=== PATIENT | female | born 1965 | race Caucasian/White ===

== ENCOUNTER → 2019-11-22 11:12 | Outpatient (BNVA) | payer OTHER, SELFPAY | PROVIDERS: Family Provider Family Medicine; Visit Provider Registered Nurse | DX: Z00.00 Encounter for general adult medical examination without abnormal findings (principal); E78.5 Hyperlipidemia, unspecified; R51 Headache | CPT/HCPCS: 80053; 80061; 85025 ==

== ENCOUNTER 2019-12-12 10:11 | Outpatient (CLI) | payer OTHER, SELFPAY ==
--- NOTE | 2019-12-12 10:24 | MM_ITS ---
WS: [id number] Bilateral diagnostic digital mammogram, 12/12/2019 Clinical Data: 6 MO F/U CALCIFICATIONS Comparison: 04/23/2019, 10/13/2018. Findings: Calcifications noted on the implant displacement views of the right breast remain the same. They are benign in appearance. The left breast remains the same. The augmentation mammoplasty implants remain intact. The breast parenchymal pattern shows heterogeneous density. No spiculated masses nor secondar y signs of carcinoma are seen. MM/[place] [id number] Impression: 1. Benign calcification posterior to the nipple in the right breast on implant displacement views remain unchanged and appear to be benign. 2. Intact bilateral augmentation mammoplasty implant. 3. Negative left breast BIRADS: 2-Benign FOLLOW UP: 1 Year Follow-up The CAD warehouse checker was used.
== END 2019-12-12 10:12 | disposition home or self-care (01) ==
LOC: RADSHAW 10:13
PROVIDERS: PCP Registered Nurse; Visit Provider Registered Nurse
DX: R92.1 Mammographic calcification found on diagnostic imaging of breast (principal)
CPT/HCPCS: 77066

== ENCOUNTER 2019-12-26 09:26 | Day surgery (SDC) | payer OTHER, SELFPAY ==
[2019-12-24 10:59] VITALS: BMI 24.3
[2019-12-26] MEDS: sodium chloride 0.9% 1,000 ML 30 ML IV (09:40)
[2019-12-26 09:48] VITALS: BP 124/64; PULSE 63; RESP 18; TEMP 36.1; O2SAT 98
--- NOTE | 2019-12-26 11:36 | W.PM.OPSFHP ---
Same Day Surgery H&P Indication for Procedure/HPI DATE OF PROCEDURE: December 26, 2019 CHIEF COMPLAINT/INDICATIONFOR SURGICAL PROCEDURE: Screening colonoscopy PREOP DIAGNOSIS: Screening colonoscopy PLANNED PROCEDRUE: Operation Date: 12/26/19 11:00 Proposed Procedures p Colonoscopy 90951 Z12.11(Not Applicable) - Abhi Urbano MD This is a pleasant 54 years old female patient referred to my practice for screening colonoscopy. Patient reports that she had a previous colonoscopy before that was reported as normal patient denies any bleeding per rectum or history of colon cancer. ROS All systems have been reviewed negative except as per the above or per problem list Medications/Allergies* Allergies/Adverse Reactions Allergy/AdvReac Type Severity Reaction Status Date / Time No Known Allergies Allergy Verified 12/26/19 11:37 Pertinent History/Comorbid Conditions* Medical History (Updated 12/18/19 @ 18:18 by Luz Elena Lewis MD) No pertinent past medical history Denies diabetes, asthma, hypertension, seizures, DVT/PE. PCP: KO Alfred Surgical History (Updated 12/21/19 @ 10:19 by LuzE lena Lewis MD) History of back surgery 01/22/2016--back surgery [place]. Sanchez [place] [facility] [place] Hx of breast implants, bilateral 2005---saline implants Hx of cholecystectomy 2005--laparoscopic procedure S/P dilation and curettage 1987-done for a miscarriage Status post conization of cervix 1989- for abnormal Pap smear Status post hysterectomy 2008--laparoscopic assisted vaginal hysterectomy, trans-obturator suburethral sling, anterior repair, cystoscopy performed by Dr. Witt at [facility] [place]. Surgery was done for heavy bleeding and leaking of urine these operative reports have been requested and received and scanned into chart Family History (Updated 12/12/19 @ 13:19 by Falguni Plascencia RN) Diabetes Grandfather paternal Grandmother maternal Family/Other paternal uncle Heart disease Father Hypertension Father Denies family history of Colon cancer Ovarian cancer Hyperlipidemia Breast cancer Uterine cancer Thyroid condition Stroke Social History Smoking and tobacco status: current every day smoker cigarettes Pertinent Exam Findings alert, oriented x 3, clear to auscultation bilaterally, regular rate & rhythm and procedure specific exam findings (Abdominal examination nontender nondistended soft no guarding or rigidity) Recommendations Surgery/Procedure today (Screening colonoscopy and informed consent per chart) Coding Level of Care Code Acute Corporate Associate Attorney for Bailey Salazar
[2019-12-26 11:51] VITALS: BP 109/63; PULSE 54; RESP 18; TEMP 37; O2SAT 99
--- NOTE | 2019-12-26 11:54 | ANE.PACU2 ---
Inpatient post-anesthesia follow up: Airway intact: Yes Vital signs: Temperature 97.0 F Pulse Rate 63 Respiratory Rate 18 Blood Pressure 124/64 Pulse Oximetry 98 Oxygen Delivery Me thod Room Air Oxygen Flow Rate Fraction of Inspir ed Oxygen Hydration adequate: Yes Nausea and vomiting: No Mental status: Baseline
--- NOTE | 2019-12-26 11:57 | P.ANESASSM_ITS ---
Pre-Anesthetic Assessment Pre-Anesthetic Assessment: Height/Weight: Height 1.6 m Weight 62.142 kg Temp Pulse Resp BP Pulse Ox 98.6 F 54 L 18 109/63 99 12/26/19 11:51 12/26/19 11:51 12/26/19 11:51 12/26/19 11:51 12/26/19 11:51 Preop Diagnosis: Screening colonoscopy Proposed Procedure: Operation Date: 12/26/19 11:00 Proposed Procedures p Colonoscopy 59779 Z12.11(Not Applicable) - Abhi Urbano MD Was Beta López taken within 24 hours: N/A Last intake: Intake Last Liquid Date 12/25/19 Last Liquid Time 21:00 Last Solid Date 12/24/19 Last Solid Time 15:30 Social: Social History: Alcohol and Tobacco Exam: Pre-Anes Outpt Exam: alert, oriented x 3, clear to auscultation bilaterally and regular rate & rhythm Airway: Submandibular: WNL Cervical ROM: WNL MP: 1 Pulmonary: Pulmonary: None reported CV/HEM: CV/HEM: None reported : : None reported Hepatic: Hepatic: None reported GI: GI: None reported Metabolic: Metabolic: None reported Musc/skel: Musc/skel: None reported Neuropsych: Neuropsych: None reported Anesthetic Plan: ASA status: 2 Anesthesia: MAC PFSH Anesthesia PFSH: Medical History No pertinent past medical history Denies diabetes, asthma, hypertension, seizures, DVT/PE. PCP: KO Alfred Surgical History (Updated 12/21/19 @ 10:19 by Luz Elena Lewis MD) History of back surgery 01/22/2016--[place]. Sanchez [place] [facility] [place] Hx of breast implants, bilateral 2005---saline implants Hx of cholecystectomy 2005--laparoscopic procedure S/P dilation and curettage 1987-done for a miscarriage Status post conization of cervix 1989- for abnormal Pap smear Status post hysterectomy 2008--laparoscopic assisted vaginal hysterectomy, trans-obturator suburethral sling, anterior repair, cystoscopy performed by Dr. Witt [place] [facility] [place] Surgery was done for heavy bleeding and leaking of urine these operative reports have been requested and received and scanned into chart Family History Grandfather Diabetes paternal Grandmother Diabetes maternal Family/Other Diabetes paternal uncle Father Heart disease Hypertension Denies family history of Colon cancer Ovarian cancer Hyperlipidemia Breast cancer Uterine cancer Thyroid condition Stroke Social History Smoking and tobacco status: current every day smoker cigarettes Data Anesthesia Cardiac Studies: No Data to Display
[2019-12-26 12:04] VITALS: BP 110/68; PULSE 56; RESP 18; O2SAT 99
== END 2019-12-26 12:11 | disposition home or self-care (01) ==
PROVIDERS: PCP Registered Nurse; Visit Provider Surgery
PROC: 0DJD8ZZ Inspection of Lower Intestinal Tract, Via Natural or Artificial Opening Endoscopic (ICD-10-PCS; CPT 45378; principal; 2019-12-26 11:00)
DX: Z12.11 Encounter for screening for malignant neoplasm of colon (principal); F17.210 Nicotine dependence, cigarettes, uncomplicated
CPT/HCPCS: 12345; 45378; J2704; J7030

== ENCOUNTER → 2020-02-08 13:23 | Outpatient (BNVA) | payer OTHER, SELFPAY | PROVIDERS: PCP Registered Nurse; Visit Provider Obstetrics & Gynecology | DX: R39.14 Feeling of incomplete bladder emptying (principal) | CPT/HCPCS: 80053; 81000 ==

== ENCOUNTER 2020-08-30 15:46 | Emergency (ER) | payer OTHER, SELFPAY ==
[2020-08-30] VITALS (7 sets, daily range): BP systolic 99–124; BP diastolic 53–72; PULSE 57–78; RESP 18; TEMP 36.6–36.9; O2SAT 96–99; BMI 24.7
--- NOTE | 2020-08-30 16:11 | W.ED.NAVMDI ---
HPI - Nausea/Vomiting/Diarrhea General: Chief complaint: Nausea/Vomiting/Diarrhea Stated complaint: N/V , HEADACHE POST SURGERY Time Seen by Provider: 08/30/20 15:59 History of Present Illness: HPI Narrative: 55-year-old female presents to the emergency room with complaints of nausea and vomiting. But a week and a half ago she was seen in [place] had removal of a bladder mesh postoperatively she performs self-catheterization she has been able to stop doing that she did have several bowel movements including one right before she arrived here. She denies any chest pain or difficulty breathing. She denies any hematochezia melena hematemesis or coffee-ground emesis MD elicited complaint: nausea and vomiting Pertinent past history: abdominal surgery Onset (ago): hour(s) Description of vomiting: food contents and watery Associated nausea: Yes Associated abdominal pain: No Quality: cramping Exacerbating factors: eating Relieving factors: none Associated symtoms: Reports anorexia, malaise, nausea and weakness; Denies altered mental status, anxiety, bloating, change in vision, chest pain, cough, diaphoresis, decreased urine output, dizziness, dysuria, epistaxis, fatigue, fecal incontinence, fevers/chills, headache(s), myalgias, numbness, palpitations, rash, short of breath, syncope, tenesmus, tinnitus or other Review of Systems Const: Reports: malaise; Denies: fatigue or diaphoresis Eyes: Denies: change in vision ENMT: Denies: tinnitus or epistaxis Card: Denies: chest pain, palpitations or syncope Resp: Denies: dyspnea, productive cough or non-productive cough GI: Reports: nausea; Denies: bloating or fecal incontinence : Denies: dysuria Skin/Breast: Denies: rash or pruritus Neuro: Denies: headache(s) or dizziness Psych: Denies: anxiety PFSH ED PFSH: Medical History No pertinent past medical history Denies diabetes, asthma, hypertension, seizures, DVT/PE. PCP: KO Alfred Surgical History History of back surgery 01/22/2016[place] [facility] [place]x of breast implants, bilateral 2006---saline implants Hx of cholecystectomy 2005--laparoscopic procedure S/P dilation and curettage 1987-done for a miscarriage Status post conization of cervix 1989- for abnormal Pap smear Status post hysterectomy 2008--laparoscopic assisted vaginal hysterectomy, trans-obturator suburethral sling, anterior repair, [place] [facility] [place] Surgery was done for heavy bleeding and leaking of urine these operative reports have been requested and received and scanned into chart Family History Grandfather Diabetes paternal Grandmother Diabetes maternal Family/Other Diabetes paternal uncle Father Heart disease Hypertension Denies family history of Colon cancer Ovarian cancer Hyperlipidemia Breast cancer Uterine cancer Thyroid condition Stroke Social History Smoking and tobacco status: current every day smoker cigarettes Physical Exam Const: COMMON NORMALS: no acute distress EXAM LIMITATIONS: no altered mental status GENERAL APPEARANCE: cooperative and comfortable ORIENTATION/CONSCIOUSNESS: Yes awake, Yes oriented to person, Yes oriented to place and Yes oriented to time HENMT: COMMON NORMALS: normocephalic, atraumatic and hearing grossly normal bilaterally HEAD & SCALP: normocephalic and atraumatic Neck/C-Spine: COMMON NORMALS: no JVD Resp: COMMON NORMALS: normal respiratory effort, No retractions, No use of accessory muscles and clear to auscultation bilaterally AUSCULTATION: clear to auscultation bilaterally Cardio: COMMON NORMALS: no JVD, regular rate, regular rhythm and No murmurs present (Cardio) RATE: regular rate RHYTHM: regular rhythm GI: COMMON NORMALS: Soft to palpation and No hepatosplenomegaly present AUSCULTATION: Yes normoactive bowel sounds PALPATION: Yes Soft to palpation, No Tenderness to palpation present (GI), No Guarding due to palpation present (GI) and Yes No hepatosplenomegaly present Extremity: COMMON NORMALS: normal to inspection, capillary refill normal, no clubbing, cyanosis or edema, no calf tenderness and no pedal edema Neuro: SENSORIUM/ORIENTATION: Yes oriented to person, Yes oriented to place and Yes oriented to time Skin: COMMON NORMALS: no rashes or lesions noted GENERAL SKIN EXAM: no rashes or lesions noted Course Vital Signs: Vital signs: Vital Signs Temperature 97.9 F 08/30/20 18:52 Pulse Rate 78 08/30/20 18:52 Respiratory Rate 18 08/30/20 18:52 Blood Pressure 106/72 08/30/20 18:52 Pulse Oximetry 96 08/30/20 18:52 MDM - Nausea/Vomiting/Diarrhea MDM Narrative: Medical decision making narrative: Reviewed CT findings with the patient. Will discharge home clear liquid diet advance as tolerated return if has further problems. Lab Data: Labs: Lab Results 08/30/20 08/30/20 08/30/20 Range/Units 16:37 16:37 16:37 WBC 9.7 (4.0-10.0) 10^3/ uL RBC 4.43 (4.1-5.3) 10^6/u L Hgb 14.2 (11.5-15.3) g/dL Hct 39.8 (37.0-47.0) % MCV 89.8 (81-99) fL MCH 32.1 (28.0-34.0) pg MCHC 35.7 (30.0-36.0) g/dL RDW 13.0 (12.1-15.1) % Plt Count 279 (130-400) 10^3/c mm MPV 10.3 (7.4-10.4) fL Neut % (Auto) 73.3 % Lymph % (Auto) 20.1 % [place] % (Auto) 4.4 % Eos % (Auto) 1.5 % Baso % (Auto) 0.5 % Neut # (Auto) 7.10 (1.8-7.7) 10^3/u L Lymph # (Auto) 2.0 (0.8-4.8) 10^3/u L [place] # (Auto) 0.4 (0.2-0.9) 10^3/u L Eos # (Auto) 0.2 (0.0-0.8) 10^3/u L Baso # (Auto) 0.1 (0.0-0.1) 10^3/u L Nucleated RBC % (a uto) 0 % Nucleated RBCs # 0.0 /100WBC Sodium 143 (136-145) mmol/L Potassium 4.1 (3.5-5.1) mmol/L Chloride 107 (98-107) mmol/L Carbon Dioxide 26 (22-29) mmol/L Anion Gap 14.1 (5-19) BUN 16 (6-20) mg/dL Creatinine 0.7 (0.5-0.9) mg/dL GFR Calculation 87.2 L (90-130) mL/min Glucose 95 (65-115) mg/dL Calculated Osmolal ity 297 H (285-295) mOsm/k g Calcium 9.1 (8.5-10.5) mg/dL Magnesium 2.0 (1.7-2.3) mg/dL Total Bilirubin 0.4 (0.15-1.2) mg/dL AST 18 (0-32) U/L ALT 7 (0-33) U/L Alkaline Phosphata se 83 (35-105) IU/L Total Protein 7.1 (6.6-8.7) g/dL Albumin 4.7 (3.5-5.2) g/dL Globulin 2.4 (1.3-4.6) g/dL Urine Color Yellow (Yellow) Urine Appearance Clear (CLEAR) Urine pH 8 H (5-7) Ur Specific Gravit y 1.015 (1.005-1.030) Urine Protein Neg (Negative) Urine Glucose (UA) Norm (Normal) Urine Ketones Negative (Negative) Urine Blood 3+ H (Negative) Urine Nitrate Negative (Negative) Urine Bilirubin Neg (Negative) Prot Sulfosalicyli c Acd Negative (Negative) Urine Urobilinogen Norm (Negative) mg/dL Ur Leukocyte Jackelin ase Trace H (Negative) Urine RBC 5-10 H (0-2) /hpf Urine WBC 5-10 H (0-5) /hpf Ur Squamous Epith Cells Rare (0-5) /hpf Amorphous Sediment Not Reportable Urine Bacteria 1+ H (NONE) /hpf Urine Mucus 1+ /hpf Discharge Plan Discharge Patient Disposition: Home Clinical Impression: Adynamic ileus Condition: Stable Prescriptions: New magnesium citrate Solution 150 ml PO BID Qty: 296 RF: 0 Zofran 4 mg tablet 4 mg PO Q6H PRN (Reason: nausea and vomiting) Qty: 15 RF: 0 No Action amitriptyline 25 mg tablet 25 mg PO DAILY Qty: 90 RF: 0 polyethylene glycol 3350 17 gram powder in packet 17 g PO DAILY RF: 0 ibuprofen 600 mg tablet 600 mg PO Q6H PRN (Reason: Pain) RF: 0 estradiol 0.01 % (0.1 mg/gram) cream See Rx Instructions .ROUTE .COMPLEX RF: 0 oxycodone 5 mg tablet 5 mg PO Q4H PRN (Reason: Pain) RF: 0 Discharge Orders: Discharge ED (Routine); Ordered 08/30/20 Ordered By: Drew Arias Referrals: Kelechi Butt, ELECTRONICS SYSTEM MECHANIC [Primary Care Provider] - Discharge Diet: Clear Liquid Discharge Activity: Increase activity as tolerated Patient Instructions: Opioid Safety Activity Restrictions/Additional Instructions: Liquid diet for the next 12 to 24 hours. Start using mag citrate 150 mL every 6 hours until desired results achieved. May advance tolerate diet as tolerated. Coding Level of Care Code ED Ditto Machine Operator for Bailey Fwd Exam Comprehensive
[2020-08-30] MEDS: sodium chloride 0.9% 1,000 ML 999 ML IV (16:50)
[2020-08-30] MEDS: ondansetron 2 mg/ML SDV 2 mL 4 MG IVP (16:50)
--- NOTE | 2020-08-30 17:03 | CTR_ITS ---
PROCEDURE INFORMATION: Exam: CT Abdomen And Pelvis With Contrast Exam date and time: 08/30/2020 5:10 PM Age: 55 years old Clinical indication: Abdominal pain; Generalized; Prior surgery; Surgery date: 6+ months; Surgery type: Gb, hyster; Additional info: Abd pain TECHNIQUE: Imaging protocol: Computed tomography of the abdomen and pelvis with contrast. Radiation optimization: All CT scans at this facility use at least one of these dose optimization techniques: automated exposure control; mA and/or kV adjustment per patient size (includes targeted exams where dose is matched to clinical indication); or iterative reconstruction. Contrast material: OMNIPAQUE 300; Contrast volume: 95 ml; Contrast route: INTRAVENOUS (IV); COMPARISON: No relevant prior studies available. RADIATION DOSE METRICS: Total DLP (mGy-cm): 871.11 FINDINGS: Liver: There is no focal abnormality within the liver. Gallbladder and bile ducts: There has been a cholecystectomy. Pancreas: The pancreas is normal. Spleen: The spleen is normal. Adrenal glands: The adrenal glands are normal. Kidneys and ureters: The kidneys are normal. There is no evidence of hydronephrosis. Stomach and bowel: There is no evidence of colitis/diverticulitis. Appendix: Not Identified Intraperitoneal space: Unremarkable. No free air. No significant fluid collection. Vasculature: The aorta demonstrates mild atherosclerotic calcification. There is no evidence of an abdominal aortic aneurysm. Lymph nodes: There is no evidence of lymphadenopathy. Urinary bladder: Unremarkable as visualized. Reproductive: There has been a hysterectomy. Bones/joints: The lumbar spine demonstrates mild degenerative changes at multiple levels. Soft tissues: Unremarkable. CT/CT abdomen pelvis w con* [id number] IMPRESSION: No acute finding. Radiation Dose CTDIVOL = (mGy): DLP = 871.11 (mGy-cm)
[2020-08-30 17:04] LABS: Basophils # 0.1 10^3/uL (0.0-0.1); Basophils % 0.5 %; Eosinophils # 0.2 10^3/uL (0.0-0.8); Eosinophils % 1.5 %; Hematocrit 39.8 % (37.0-47.0); Hemoglobin 14.2 g/dL (11.5-15.3); Lymphocytes % 20.1 %; Mean Corpuscular HGB Conc 35.7 g/dL (30.0-36.0); Mean Corpuscular Hemoglobin 32.1 pg (28.0-34.0); Mean Corpuscular Volume 89.8 fL (81-99); Mean Platelet Volume 10.3 fL (7.4-10.4); Monocytes # 0.4 10^3/uL (0.2-0.9); Monocytes % 4.4 %; Neutrophils % 73.3 %; Nucleated Red Blood Cells % 0 %; Platelet Count 279 10^3/cmm (130-400); Red Blood Count 4.43 10^6/uL (4.1-5.3); White Blood Count 9.7 10^3/uL (4.0-10.0)
[2020-08-30 17:17] LABS: Urine Appearance Clear (CLEAR); Urine Color Yellow (Yellow); pH Urine 8 (5-7)
[2020-08-30 17:18] LABS: Add Urine Culture? No; Add Urine Microscopic? YES; Bacteria Urine 1+ /hpf; Bilirubin Urine Neg (Negative); Blood Urine 3+ (Negative); Glucose Urine UA Norm (Normal); Ketones Urine Negative (Negative); Leukocyte Esterase Urine Trace (Negative); Mucus Urine 1+ /hpf; Nitrate Urine Negative (Negative); Protein Urine Neg (Negative); Specific Gravity, Urine 1.015 (1.005-1.030); Squamous Epithelial Cell Urine RARE /hpf (0-5); Sulfosalicylic Acid Urine Negative (Negative); Urobilinogen Urine Norm (Negative)
[2020-08-30 17:23] LABS: Alanine Aminotransferase 7 U/L (0-33); Albumin Level 4.7 g/dL (3.5-5.2); Alkaline Phosphatase 83 IU/L (35-105); Anion Gap 14.1 (5-19); Aspartate Amino Transferase 18 U/L (0-32); Blood Urea Nitrogen 16 mg/dL (6-20); Calcium 9.1 mg/dL (8.5-10.5); Carbon Dioxide 26 mmol/L (22-29); Chloride 107 mmol/L (98-107); Creatinine Clr Calc Pharmacy 82.4423; Globulin 2.4 g/dL (1.3-4.6); Glomerular Filtration Rate 87.2 mL/min (90-130); Glucose 95 mg/dL (65-115); Osmolality Calculated 297 mOsm/kg (285-295); Potassium 4.1 mmol/L (3.5-5.1); Sodium 143 mmol/L (136-145); Total Bilirubin 0.4 mg/dL (0.15-1.2); Total Protein 7.1 g/dL (6.6-8.7)
[2020-08-30] MEDS: iohexol 300 mg/mL 100 mL Btl IV (17:27)
== END 2020-08-30 18:57 | disposition home or self-care (01) ==
PROVIDERS: Emergency Provider Family Medicine; PCP Registered Nurse
DX: K56.0 Paralytic ileus (principal); F17.210 Nicotine dependence, cigarettes, uncomplicated
CPT/HCPCS: 45915; 74177; 80053; 81001; 83735; 85025; 96361; 96374; 99283; J2405; J7030; Q9967

== ENCOUNTER → 2020-12-10 10:38 | Outpatient (BNVA) | payer OTHER, SELFPAY | PROVIDERS: PCP Registered Nurse; Visit Provider Registered Nurse | DX: Z20.822 Contact with and (suspected) exposure to COVID-19 (principal); R51.9 Headache, unspecified; B34.9 Viral infection, unspecified | CPT/HCPCS: 87635 ==

== ENCOUNTER 2021-02-02 10:09 | Outpatient (CLI) | payer OTHER, SELFPAY ==
--- NOTE | 2021-02-02 10:13 | MM_ITS ---
WS: [id number] Bilateral screening digital mammogram, 02/02/2021 Clinical Data: SCREENING Comparison: 12/12/2019, 04/23/2019, 10/13/2018, 09/15/2018, Findings: The breast parenchymal pattern shows heterogeneous density. No spiculated masses or clustered calcifi cations are seen. There are benign calcifications on the CC implant displacement view of the right br east unchanged. There are no secondary signs of carcinoma. Bilateral augmentation mammoplasty implant s are intact. MM/[place] [id number] Impression: 1. Benign calcifications posterior to the right areola on the implant displace ment view appear benign and are unchanged. 2. 2. Intact bilateral augmentation mammoplasty implants. 3. 3. Negative left breast. 4. Recommend annual screening mammograms. BIRADS: 2-Benign FOLLOW UP: 1 Year Follow-up The CAD quality checker was used.
== END 2021-02-02 10:10 | disposition home or self-care (01) ==
LOC: RADSHAW 10:12
PROVIDERS: PCP Registered Nurse; Visit Provider Registered Nurse
DX: Z12.31 Encounter for screening mammogram for malignant neoplasm of breast (principal)
CPT/HCPCS: 77067

== ENCOUNTER 2022-02-02 10:11 | Outpatient (CLI) | payer OTHER, SELFPAY ==
--- NOTE | 2022-02-02 10:17 | MM_ITS ---
WS: [id number] BILATERAL SCREENING DIGITAL BREAST MAMMOGRAPHY WITH RODY DISPLACEMENT VIEWS. CAD PERFORMED. HISTORY: SCREENING COMPARISON: 02/02/2021 and 12/12/2019 Bilateral craniocaudal and mediolateral oblique views are performed with tomosynthesis and SM. Rody displacement views in CC and MLO projection also performed. Breasts composition: There are scattered areas of fibroglandular density. Breast implants are intact. Calcification along the wall of the implants. Otherwise negative. No susp icious mass or calcifications. MM/[place] [id number] IMPRESSION: BI-RADS: 2-Benign FOLLOW-UP: 1 Year Follow-up
== END 2022-02-02 10:12 | disposition home or self-care (01) ==
LOC: RAD 10:11
PROVIDERS: PCP Registered Nurse; Visit Provider Obstetrics & Gynecology
DX: Z12.31 Encounter for screening mammogram for malignant neoplasm of breast (principal); R92.1 Mammographic calcification found on diagnostic imaging of breast
CPT/HCPCS: 77063; 77067

== ENCOUNTER → 2022-12-16 09:01 | Outpatient (BNVA) | payer OTHER, SELFPAY | PROVIDERS: PCP Registered Nurse; Visit Provider Registered Nurse | DX: E78.5 Hyperlipidemia, unspecified (principal); G43.909 Migraine, unspecified, not intractable, without status migrainosus; Z13.6 Encounter for screening for cardiovascular disorders | CPT/HCPCS: 80053; 80061; 85025 ==

== ENCOUNTER 2023-08-12 08:19 | Outpatient (CLI) | payer OTHER, SELFPAY ==
--- NOTE | 2023-08-12 08:30 | MM_ITS ---
WS: [id number] BILATERAL SCREENING DIGITAL BREAST MAMMOGRAPHY WITH RODY DISPLACEMENT VIEWS. CAD PERFORMED. HISTORY: Z12.31 - Encounter for screening mammogram for malignant ... COMPARISON: 02/02/2022, 02/02/2021 Bilateral craniocaudal and mediolateral oblique views are performed with tomosynthesis and SM. Rody displacement views in CC and MLO projection also performed. Breasts composition: The breasts are heterogeneously dense, which may obscure small masses. Prepecto ral implants are intact. No suspicious masses. There are a few benign calcifications noted in the pos terior RIGHT breast which have been present on prior studies. These may be skin calcifications. No ar chitectural distortion. IMPRESSION: MM/[place] [id number] BI-RADS: 2-Benign FOLLOW-UP: 1 Year Follow-up
== END 2023-08-12 08:20 | disposition home or self-care (01) ==
LOC: RAD 08:20
PROVIDERS: PCP Registered Nurse; Visit Provider Nurse Practitioner Women's Health
DX: Z12.31 Encounter for screening mammogram for malignant neoplasm of breast (principal)
CPT/HCPCS: 77063; 77067

== ENCOUNTER → 2023-10-19 15:16 | Outpatient (BNVA) | payer OTHER, SELFPAY | PROVIDERS: PCP Registered Nurse; Visit Provider Nurse Practitioner | DX: S99.922A Unspecified injury of left foot, initial encounter (principal); X58.XXXA Exposure to other specified factors, initial encounter | CPT/HCPCS: 73630 ==

== ENCOUNTER → 2024-07-24 14:54 | Outpatient (BNVA) | payer OTHER, SELFPAY | PROVIDERS: PCP Registered Nurse; Visit Provider Registered Nurse | DX: R07.89 Other chest pain (principal) | CPT/HCPCS: 80053; 80061; 84443; 85025 ==

== ENCOUNTER → 2024-08-07 13:12 | Outpatient (BNVA) | payer OTHER, SELFPAY | PROVIDERS: PCP Registered Nurse; Visit Provider Internal Medicine | DX: R07.9 Chest pain, unspecified (principal) | CPT/HCPCS: 93005 ==

== ENCOUNTER 2024-09-05 10:11 | Outpatient (CLI) | payer OTHER, SELFPAY ==
--- NOTE | 2024-09-05 10:20 | MM_ITS ---
WS: [id number] BILATERAL 3D TOMOSYNTHESIS DIGITAL SCREENING MAMMOGRAPHY WITH CAD CLINICAL INFORMATION: Z12.31 - Encounter for screening mammogram for malignant ... HISTORY: Screening mammogram. No current complaints. COMPARISON: 2023 TECHNIQUE: Bilateral CC and MLO views. FINDINGS: Stable bilateral breast implants with capsular calcifications. Scattered fibroglandular densities bilaterally. No suspicious focal mass, asymmetry, calcifications, or architectural distortion. No evidence of malignancy. Incidental punctate calcifications. MM/MM [facility] tomosynthesis [id number] IMPRESSION: DENSITY: There are scattered areas of fibroglandular density. BI-RADS: 2 - Benign. FOLLOW UP: 1 Year Follow-up Recommend return to annual screening mammography.
== END 2024-09-05 10:12 | disposition home or self-care (01) ==
LOC: RAD 10:12
PROVIDERS: PCP Registered Nurse; Visit Provider Registered Nurse
DX: Z12.31 Encounter for screening mammogram for malignant neoplasm of breast (principal); R92.323 Mammographic fibroglandular density, bilateral breasts; R92.1 Mammographic calcification found on diagnostic imaging of breast
CPT/HCPCS: 77063; 77067

== ENCOUNTER 2024-09-10 09:30 | Outpatient (CLI) | payer OTHER, SELFPAY ==
--- NOTE | 2024-09-10 | ECG_ITS ---
[employer] Test Date: 2024-09-10 Pat Name: Kofi Thompson Department: Room: Gender: Female Hotel Front Office Manager: : 1965 Requested By: Derrick Perez Order Number: [id number] Brandt MD: Derrick Perez M.D. Interpretive Statements EXERCISE MIBI EXERCISE DATA: The patient was exercised by Rian protocol. Baseline heart rate was 50 beats per minute. Baseline blood pressure was 95/60 millimeters of mercury. Maximal predicted heart rate was 162 beats per minute. Maximum heart rate achieved was 146, which was 90% of the maximum predicted heart rate. Maximum blood pressure was 185/59 millimeters of mercury. Total exercise time was 8 minutes and 10 seconds. Maximum METs achieved was 10.2. The reason for ending the test was completion of protocol. The patient complained of shortness of breath during the stress test, which then resolved at the end of the test. ELECTROCARDIOGRAM: BASELINE: Showed sinus rhythm, normal axis, no significant ST-T changes at the baseline noted. [] EXERCISE: At the peak exercise level, [] 1-2mm ST depression in inferior leads and transient elevation in aVL RECOVERY: During the recovery period, heart rate dropped appropriately. No significant ST-T changes in the recovery suggestive of ischemia noted. [] CONCLUSION: 1. Exercise capacity is good. 2. Heart rate response was appropriate 3. Blood pressure response was appropriate 4. Symptoms not suggestive of ischemia. 5. Electrocardiogram portion of the stress test has borderline abnormalities as mentioned above. Can not rule out ischemia. Will recommend clinical correlation and review of imaging portion of the stress test. 6. Nuclear scan will be documented separately. Electronically Signed On 09-15-2024 12:05:04 CDT by Derrick Perez M.D. [email or web address]
--- NOTE | 2024-09-10 09:58 | NMCV_ITS ---
NM leon perf SPECT r/s* [id number] Kofi Thompson Age: 59 Gender: F : 1965 Exam Date: 09/10/2024 10:35 Ordering Phys: Derrick Perez M.D ([email or web address]) Technologist: KAROLINE Cameron Exam Location: [facility] [place] Indications: cp STRESS TEST Please see separate stress [facility] for [facility] IMAGE PROTOCOL Rest/Stress 1 Exercise Day Radiopharmaceutical Dose (mCi) Administration Site Administered by Rest: Tc-99m 10.6 IV KAROLINE Cameron Sestamibi Stress:Tc-99m 32.9 IV Christy Brice, COLLAR STAY FUSER TENDER Sestamibi Rest: 10-Sep-2024 60 Discovery 630 Stress: 10-Sep-2024 30 Discovery 630 Radiopharmaceutical was injected at 88% maximum heart rate. Images obtained in supine and prone position. SPECT RESULTS Technical Quality: Good Raw Data Analysis: Normal Image Corrections: No attenuation or motion correction applied Summed Stress Score: 0 Summed Rest Score: 0 Summed Difference Score: 0 PERFUSION FINDINGS SPECT images demonstrate homogeneous tracer distribution throughout the myocardium. FUNCTIONAL RESULTS (calculated via Gated SPECT) Stress Image LV EF (%): 77 Stress EDV (mL):70 TID: 0.89 Stress ESV (mL):16 FUNCTIONAL FINDINGS: There is normal left ventricular systolic function. IMPRESSIONS Myocardial perfusion imaging is normal. Flores Henao MD (Electronically Signed) Final Date: 13 Sep 2024 21:38 S
[2024-09-10 09:59] VITALS: BMI 22.1
[2024-09-10 11:21] VITALS: BP 112/64; PULSE 92
--- NOTE | 2024-09-10 15:00 | USCV_ITS ---
[facility] Age: 59 Gender: F : 1965 Exam Date: 09/10/2024 10:02 Ordering Phys: Derrick Perez M.D ([email or web address]) Technologist: [place] [facility] [place]: cp sob BP: 110 / 70 HR: 57 Rhythm: Sinus Technical Quality: MEASUREMENTS (Male / Female) Normal Values 2D ECHO LV Diastolic Diameter PLAX 4.4 cm 4.2 - 5.9 / 3.9 - 5.3 cm IVS Diastolic Thickness 1.1 cm 0.6 - 1.0 / 0.6 - 0.9 cm IVS Systolic Thickness 1.3 cm LVPW Diastolic Thickness 0.9 cm 0.6 - 1.0 / 0.6 - 0.9 cm LVPW Systolic Thickness 1.3 cm LVOT Diameter 2.0 cm LV Ejection Fraction 2D Teich 68.0 % LV Ejection Fraction MOD 4C 68.9 % LV Ejection Fraction MOD 2C 74.0 % LV Ejection Fraction 2C AL 73.5 % LA Diameter 2.3 cm RA Systolic Volume 4C AL 33.1 ml RA Systolic Volume 4C MOD 32.0 ml Aorta at Sinotubular Diameter 1.9 cm IVC Diameter 1.5 cm M-MODE LA Ao Ratio MM 1.1 AV Cusp Separation MM 2.5 cm DOPPLER AV Peak Velocity 113.0 cm/s LVOT Peak Velocity 82.0 cm/s AV Area Cont Eq vti 3.2 cm squared AV Area Cont Eq pk 2.3 cm squared MV Peak Velocity 62.0 cm/s MV Area PHT 3.8 cm squared Mitral E to A Ratio 0.8 TR Peak Velocity 74.0 cm/s TR Peak Gradient 2.2 mmHg TV Peak E Velocity 71.0 cm/s PV Peak Velocity 88.0 cm/s FINDINGS Left Ventricle Left ventricle is normal in size. LV systolic function is normal with EF of 60-65%. No regional wall motion abnormalities are seen. Right Ventricle Normal in size and function Right Atrium Normal in size Left Atrium Normal in size Mitral Valve Structurally normal mitral valve. Trace mitral regurgitation. Aortic Valve Structurally normal aortic valve. No significant stenosis or regurgitation. Tricuspid Valve Insufficient TR jet to evaluate RVSP. Pulmonic Valve Not well visualized Pericardium Normal Aorta Normal in size IVC Appears to be normal CONCLUSIONS LV systolic function is normal with EF of 60-65% Trace mitral regurgitation No comparison studies are available. Derrick Perez MD (Electronically Signed) Final Date: 16 Sep 2024 13:46 S
== END 2024-09-10 09:31 | disposition home or self-care (01) ==
LOC: CDL 09:31
PROVIDERS: PCP Registered Nurse; Visit Provider Internal Medicine
DX: R07.9 Chest pain, unspecified (principal); R06.02 Shortness of breath; R93.1 Abnormal findings on diagnostic imaging of heart and coronary circulation
CPT/HCPCS: 36415; 78452; 93017; 93306; 96374; A9500

== ENCOUNTER 2024-09-12 12:45 | Outpatient (CLI) | payer OTHER, SELFPAY ==
--- NOTE | 2024-09-12 13:00 | CT_ITS ---
WS: [id number] LDCT LUNG CANCER SCREENING HISTORY: F17.210 - Nicotine dependence, cigarettes, uncomplicated TECHNIQUE: Axial imaging performed from the apices to 1 cm below the costophrenic angles. Coronal and sagittal reformats are submitted with axial MIP series. All CT scans at [facility] use at least one of these dose optimization techniques: automated exposure control; mA and/or kV adjustment per patient size (includes targeted exams where dose is matched to clinical indication); or iterative reconstruction. DLP: 46.50 mGy.cm DIvol: Mean CTDIvol: 0.80 (mGy) COMPARISON: None available. Diagnostic quality: Satisfactory Lungs: Moderate pulmonary hyperexpansion with centrilobular emphysema. There are 2 nodules in the LEFT upper lobe. The largest nodule with a mean diameter of 9 mm. Slightly irregular and spiculated margins. There is a smaller nodule just slightly superior with a maximum diameter of 6 mm. No additional pulmonary mass or nodule. No endobronchial lesions. Mild biapical pleural thickening and fibrosis. 2 mm RIGHT fissural nodule. No endobronchial lesions. Heart: Normal size heart with no pericardial effusion.. Other findings: Bilateral breast implants. Normal size aorta. No adenopathy identified. Osteopenia, mild increase in thoracic kyphosis. CT/CT lung screening [id number] IMPRESSION: LUNG-RADS: 4A-Probably Suspicious FOLLOW UP: 3 Month LDCT OTHER FINDINGS (S MODIFIER): None.
== END 2024-09-12 12:46 | disposition home or self-care (01) ==
PROVIDERS: PCP Registered Nurse; Visit Provider Registered Nurse
DX: Z12.2 Encounter for screening for malignant neoplasm of respiratory organs (principal); F17.210 Nicotine dependence, cigarettes, uncomplicated; R91.8 Other nonspecific abnormal finding of lung field; J43.2 Centrilobular emphysema; J92.9 Pleural plaque without asbestos; J84.10 Pulmonary fibrosis, unspecified; Z98.82 Breast implant status; M85.80 Other specified disorders of bone density and structure, unspecified site; M40.294 Other kyphosis, thoracic region
CPT/HCPCS: 71271

== ENCOUNTER 2024-12-17 11:51 | Outpatient (CLI) | payer OTHER, SELFPAY ==
--- NOTE | 2024-12-17 12:00 | CTR_ITS ---
PROCEDURE INFORMATION: Exam: CT Chest Without Contrast; Diagnostic Exam date and time: 12/17/2024 12:07 PM Age: 59 years old Clinical indication: Abnormal findings; Abnormal radiologic exam of lung or chest; Prior surgery; Surgery date: 6+ months; Surgery type: Breast augmentations; Additional info: R91.8 - other nonspecific abnormal finding of lung field TECHNIQUE: Imaging protocol: Diagnostic computed tomography of the chest without contrast. Radiation optimization: All CT scans at this facility use at least one of these dose optimization techniques: automated exposure control; mA and/or kV adjustment per patient size (includes targeted exams where dose is matched to clinical indication); or iterative reconstruction. COMPARISON: CT lung screening [id number] 09/12/2024 12:59 PM RADIATION DOSE METRICS: Total DLP (mGy-cm): 218.81 FINDINGS: Lungs: There is centrilobular emphysema. There is a left upper lobe nodule which measures 1.3 x 0.9 cm. It is slightly spiculated and irregular in appearance. It does not appear significantly changed from the prior exam. There is a granuloma in the left lower lobe. No other pulmonary nodules are identified. Pleural spaces: Unremarkable. No pneumothorax. No pleural effusion. Heart: Heart size appears normal. No coronary artery calcifications are identified. Lymph nodes: Unremarkable. No enlarged lymph nodes. Vasculature: Unremarkable. No aortic aneurysm. Gallbladder and biliary ducts: The gallbladder is surgically absent. Bones/joints: There are degenerative changes of the bony structures. No lytic or blastic lesions are identified. Soft tissues: Bilateral breast augmentation is present. The left has a calcified fibrous capsule. CT/CT chest wo con [id number] IMPRESSION: 1. Irregular spiculated left upper lobe nodule without significant change. Consider PET-CT versus biopsy. Follow-up per Fleischner guidelines: 2. Greater than 8 mm: Low and high risk-consider CT at 3 months, PET-CT, or tissue sampling 3. Centrilobular emphysema 4. Additional findings as described above. Erica H, Zelalem ARMENTA, Bubba G, et al. Guidelines for management of small pulmonary nodules detected on CT scans: a statement from the Fleischner Society. Radiology 2005;237(2):395-400. COMMENTS: The presence of pulmonary emphysema on CT is an independent risk factor for lung cancer. In the absence of a history or active diagnosis of lung cancer, it is recommended that this patient with emphysema be evaluated for enrollment in a low dose CT lung cancer screening program.
== END 2024-12-17 11:52 | disposition home or self-care (01) ==
LOC: RAD 11:55
PROVIDERS: PCP Registered Nurse; Visit Provider Registered Nurse
DX: R91.8 Other nonspecific abnormal finding of lung field (principal); R91.1 Solitary pulmonary nodule; J43.2 Centrilobular emphysema; J84.10 Pulmonary fibrosis, unspecified; Z98.82 Breast implant status; R93.89 Abnormal findings on diagnostic imaging of other specified body structures
CPT/HCPCS: 71250

== ENCOUNTER 2024-12-28 11:57 | Outpatient (CLI) | payer OTHER, SELFPAY ==
--- NOTE | 2024-12-28 12:30 | PETR_ITS ---
PROCEDURE INFORMATION: Exam: PET/CT Skull Base to Mid-thigh Exam date and time: 12/28/2024 1:27 PM Age: 59 years old Clinical indication: Condition or disease; Primary cancer: Follow up pulmonary nodule LABS AND CLINICAL REPORTS: Glucose: 105 mg/dl Treatment strategy for malignancy (PET staging): Initial Staging (PI) TECHNIQUE: Imaging protocol: Following at least four-hour fasting and following the injection of radiopharmaceutical, low dose CT images were obtained. Then, PET images were obtained. Attenuation corrected images were constructed using the CT scan. Fused images of PET and CT were reviewed. The standardized uptake values (SUV) reported below are maximum values within a region of interest, expressed in gm/ml. Exam includes orbital meatal line to mid-thigh. SUV normalization method: BodyWeight Radiopharmaceutical: 10.7 mCi F-18 FDG (Fluorodeoxyglucose), IV. Time of imaging post radiopharmaceutical administration: 44 minutes Injection site: RAC COMPARISON: CT chest [facility] [id number] 12/17/2024 12:07 PM FINDINGS: Brain: Visualized brain has normal physiologic uptake. Pharynx: No abnormal uptake. Larynx: No abnormal uptake. Lungs, pleura and trachea: No unchanged mildly irregular 1.3 cm nodule within the left upper lobe without any significant FDG uptake. There is no abnormal uptake within the lung parenchyma or pleura. There are scattered calcified granulomas. There is a background of moderate emphysema. Heart: Normal physiologic uptake. Mediastinal space: No abnormal uptake. Liver: No abnormal uptake. Gallbladder and biliary ducts: No abnormal uptake. Status post cholecystectomy. Pancreas: No abnormal uptake. Spleen: No abnormal uptake. Adrenal glands: No abnormal uptake. Kidneys and ureters: Normal physiologic uptake. Stomach and bowel: No abnormal uptake. Vasculature: No abnormal uptake. [id number]-[id number] atherosclerotic calcifications. Lymph nodes: No abnormal uptake. No lymphadenopathy in the head, neck, chest, abdomen, pelvis, and extremities. Skeleton: No abnormal uptake in the visualized axial and appendicular skeleton. Soft tissues: No abnormal uptake in the visualized head, neck, chest, abdomen, pelvis, and extremities.There are bilateral breast implants. Peripherally calcified left breast implant. METRICS: Mediastinal blood pool: Mean SUV of 2.0 Liver uptake: Mean SUV of 2.3 PET/PET skull to thigh INIT [id number] IMPRESSION: 1. Stable 1.3 cm left upper lobe nodule without abnormal FDG uptake. Continued surveillance is recommended with low-dose chest CT given size and background of emphysema. 2. No functional or anatomic evidence of malignancy or metastatic disease.
== END 2024-12-28 11:58 | disposition home or self-care (01) ==
PROVIDERS: PCP Registered Nurse; Visit Provider Internal Medicine
DX: R91.1 Solitary pulmonary nodule (principal); J84.10 Pulmonary fibrosis, unspecified; Z90.49 Acquired absence of other specified parts of digestive tract; I70.90 Unspecified atherosclerosis; Z98.82 Breast implant status; N64.89 Other specified disorders of breast
CPT/HCPCS: 78815; A9552

== ENCOUNTER 2025-01-08 07:58 | Outpatient (CLI) | payer OTHER, SELFPAY | END 2025-01-08 07:59 | disposition home or self-care (01) | PROVIDERS: PCP Registered Nurse; Visit Provider Internal Medicine | DX: R91.1 Solitary pulmonary nodule (principal); R07.9 Chest pain, unspecified | CPT/HCPCS: 94060; 94726; 94729 ==

== ENCOUNTER 2025-01-11 06:36 | Outpatient (CLI) | payer OTHER, SELFPAY ==
--- NOTE | 2025-01-11 07:00 | CT_ITS ---
WS: [id number] CT CHEST TECHNIQUE: Noncontrast CT of the chest with coronal and sagittal reformatted images. CLINICAL INFORMATION: Tentative Bronch COMPARISON: CT chest 12/17/[address] 12/28/2024 DLP: [address] scans at [facility] use at least one of these dose optimization techniques: automated exposure control; mA and/or kV adjustment per patient size (includes targeted exams where dose is matched to clinical indication); or iterative reconstruction. FINDINGS: Again seen is the irregular spiculated LEFT upper lobe nodule. This has an irregular suspicious appearance but without high-grade FDG uptake on the prior outside PET/CT reportedly. However, this has a more solid appearance compared to the CT 12/17/2024 considering differences in slice thickness and technique. This measures approximately 1.4 x 0.9 cm by my measurements today and appears slightly larger and more dense. Previously this measured approximately 1.3 x 0.8 cm by my measurements on the chest CT 12/17/2024 Moderate chronic centrilobular emphysematous changes. No mediastinal or hilar lymphadenopathy. Aortic calcification. Breast implants with capsular calcifications. CT/CT chest ION (PULM ONLY) [id number] IMPRESSION: Images obtained for preoperative planning and possible navigational bronchoscop y
== END 2025-01-11 06:37 | disposition home or self-care (01) ==
LOC: RAD 06:36
PROVIDERS: PCP Registered Nurse; Visit Provider Internal Medicine
DX: R91.1 Solitary pulmonary nodule (principal); J43.2 Centrilobular emphysema; Z98.82 Breast implant status
CPT/HCPCS: 71250

== ENCOUNTER 2025-01-16 08:11 | Day surgery (SDC) | payer OTHER, SELFPAY ==
[2025-01-16] VITALS (11 sets, daily range): BP systolic 91–151; BP diastolic 46–76; PULSE 50–97; RESP 16–18; TEMP 36.2–36.4; O2SAT 95–100; BMI 22.3
--- NOTE | 2025-01-16 09:09 | W.PM.OPSUD ---
Surgery/Procedure H&P Update DATE OF PROCEDURE: January 16, 2025 DATE H&P PERFORMED: 01/03/25 CHANGES TO PREVIOUS DOCUMENTATION: Patient was seen and examined. No significant change in her clinical status since I interviewed her in my clinic on January 03, 2025. I discussed the risks and benefits of the procedure with the patient and she agreed to move forward. Risks included collapsed lung, bleeding, pain, lung airway injury, arrhythmia, cardiovascular collapse and . PLANNED PROCEDURE: Operation Date: 01/16/25 09:40 Proposed Procedures p Bronchoscopy [id number] [id number](Not Applicable) - Connie Lombardi MD s Ion Robotic Assisted Bronchoscopy(Not Applicable) - Connie Lombardi MD s Ebus(Not Applicable) - Connie Lombardi MD
--- NOTE | 2025-01-16 09:20 | SC_ITS ---
WS: [id number] C-ARM RADIOGRAPHS CHEST; 1 IMAGES HISTORY: BRONCH COMPARISON: None available. Intraoperative imaging during navigational bronchoscopy. SC/C-arm FL for Bronchoscopy IMPRESSION: Intraoperative imaging during navigational bronchoscopy.
--- NOTE | 2025-01-16 09:25 | ANES.PREANE2 ---
Pre-Anesthetic Assessment Height/Weight: Height 1.63 m Weight 58.967 kg Temp Pulse Resp BP Pulse Ox O2 Del Method 97.6 F 50 L 18 151/71 98 Room Air 01/16/25 08:42 01/16/25 08:42 01/16/25 08:42 01/16/25 08:42 01/16/25 08:42 01/16/25 08:42 Operation Date: 01/16/25 09:40 Proposed Procedures p Bronchoscopy [id number] 26471 16537 18557 62621 [id number](Not Applicable) - Connie Lombardi MD s Ion Robotic Assisted Bronchoscopy(Not Applicable) - Connie Lombardi MD s Ebus(Not Applicable) - Connie Lombardi MD Familial anesthetic complications: None Was Beta López taken within 24 hours: N/A Was Clonidine taken within 24 hours: N/A Last intake: Intake Last Liquid Date 01/15/25 Last Liquid Time 21:00 Last Solid Date 01/15/25 Last Solid Time 19:30 Social Tobacco and No alcohol Exam alert, oriented x 3, clear to auscultation bilaterally and regular rate & rhythm Airway Mallampati: Class I Dentition: full (implants permanent) Pulmonary Chronic Obstructive Pulmonary Disease lung nodule GI Gastroesophageal Reflux Disease and Hiatal Hernia Anesthetic Plan ASA status: 3 Anesthesia: General Risk of > 500 ml blood loss (7ml/kg in children): No Medications/Allergies Home Medications ?Medication ?Instructions ?Recorded ?Confirmed ?Last Taken ?Type focqsancrn-bjyntgnffbymb-kpvrbpti 1 cap PO DAILY PRN pain 30 days #8 06/28/24 01/15/25 Unknown Rx 50 mg-325 mg-40 mg capsule caps nitroglycerin 0.4 mg sublingual 0.4 mg sublingual Q5M PRN chest 07/24/24 01/15/25 Unknown Rx tablet pain 30 days #30 tabs ibuprofen 200 mg capsule 800 mg PO Q6H PRN Migraine Headache 08/07/24 01/15/25 Unknown History nicotine 14 mg/24 hr daily 1 patch transdermal DAILY 28 days 10/15/24 01/15/25 01/08/25 Rx transdermal patch #28 ea pseudoephedrine HCl 30 mg tablet 30 mg PO Q6H PRN Cold Symptoms 01/03/25 01/15/25 Unknown History (Sudafed) amitriptyline 10 mg tablet 10 mg PO DAILY 01/15/25 01/15/25 01/14/25 History fluorouracil 5 % topical cream 1 applic topical BID PRN Skin 01/15/25 01/15/25 Unknown History Irritation Allergies Allergy/AdvReac Type Severity Reaction Status Date / Time No Known Allergies Allergy Verified 01/03/25 09:15 Current Medications Generic Name Dose Route Start Last Admin Trade Name Freq PRN Reason Stop Dose Admin Sodium Chloride 1,000 mls @ 15 mls/hr 01/16/25 08:22 01/16/25 09:08 Sodium Chloride 0.9% IV 01/17/25 08:21 15 mls/hr .Q24H PRN Administration COLONOSCOPY FLUIDS PFSH Anesthesia Medical History Migraines Denies aura. Was on amitriptyline in the past. This is managed by her primary care provider. She does not have a neurologist. No pertinent past medical history Denies diabetes, asthma, hypertension, seizures, DVT/PE. PCP: KO Alfred Surgical History History of vaginal surgery 08/21/2020---transvaginal mesh excision with cystoscopy performed in [facility] by Dr. Teto Valle for dyspareunia Status post conization of cervix 1989- for abnormal Pap smear History of back surgery 01/22/2016--back surgery [place]. [place] [facility] [place] S/P dilation and curettage 1987-done for a miscarriage Status post hysterectomy 2008--laparoscopic assisted vaginal hysterectomy, trans-obturator suburethral sling, anterior repair, cystoscopy performed by Dr. Witt at [facility] [place]. Surgery was done for heavy bleeding and leaking of urine these operative reports have been requested and received and scanned into chart Hx of cholecystectomy 2005--laparoscopic procedure Hx of breast implants, bilateral 2005---saline implants Family History Grandfather Diabetes paternal Grandmother Diabetes maternal Family/Other Diabetes paternal uncle Father Heart disease Hypertension Denies family history of Colon cancer Ovarian cancer Hyperlipidemia Breast cancer Uterine cancer Thyroid disease Stroke Social History Smoking and tobacco/nicotine status: current every day tobacco/nicotine user (4 cigarettes pd X 43 years.) Alcohol intake: never Substance/Drug Use: current Adopted: No Caregiver/support person: No Lives independently: No Household members: spouse Marital status: service: No Current occupational status: employed Sexually active: Yes Do you think of yourself as: Straight/Heterosexual Current gender identity: Female Data Anesthesia Cardiac Studies: Echocardiogram 09/10/24 Sestamibi Stress Test (Cardiology) 09/10/24 Cardiac Event Monitor 10/11/24
--- NOTE | 2025-01-16 10:53 | PC.NURSE ---
CRYO USED :[id number]
[2025-01-16] MEDS: lidocaine 2% INJ 20 mL XX (11:35)
[2025-01-16] MEDS: EPINEPHrine 1 MG in sodium chloride 0.9% 19 ML 4 MG XX (11:41)
--- NOTE | 2025-01-16 11:43 | XR_ITS ---
WS: [id number] XR chest 1V portable [id number] REASON FOR EXAM: POST BRONCH FINDINGS: Vague lung opacity around the previously demonstrated small left upper lobe nodule. No pneumothorax. No pleural effusion. No abnormality of the right hemithorax. XR/XR chest 1V portable [id number] IMPRESSION: Expected postprocedural findings without significant acute abnormality.
--- NOTE | 2025-01-16 11:45 | P.BOP_ITS ---
Interventional Pulmonary Immediate Brief Operative Note: * Date of Procedure:?January 16, 2025 * Preoperative Diagnosis:?Left upper lobe nodule * Postoperative Diagnosis:?[Same as pre-op] * Procedures Performed: Robotic bronchoscopy with central EBUS for mediastinal staging * * Surgeon / Motor Assembly Supervisor:?Connie Lombardi MD * Anesthesia: * ?General anesthesia * Findings: * Estimated Blood Loss (EBL):?[Minimal] * Specimens: * ?BAL fluid left upper lobe * ?TBNA from station(s) left upper lobe nodule, 11R, 4R, 7, and 11L * ?Cryobiopsy and forceps biopsies from left upper lobe nodule, station 7 and 11L * Brushings for cytology and micro from the left upper lobe * Complications:?None * Disposition:?Transferred to PACU in stable condition. Connie Lombardi MD, FACP Interventional Pulmonogist
--- NOTE | 2025-01-16 11:45 | W.PM.BPON ---
Interventional Pulmonary Immediate Brief Operative Note: Date of Procedure:?January 16, 2025 Preoperative Diagnosis:?Left upper lobe nodule Postoperative Diagnosis:?[Same as pre-op] Procedures Performed: Robotic bronchoscopy with central EBUS for mediastinal staging Surgeon / Bung Dropper:?Cnonie Lombardi MD Anesthesia: ?General anesthesia Findings: Estimated Blood Loss (EBL):?[Minimal] Specimens: ?BAL fluid left upper lobe ?TBNA from station(s) left upper lobe nodule, 11R, 4R, 7, and 11L ?Cryobiopsy and forceps biopsies from left upper lobe nodule, station 7 and 11L Brushings for cytology and micro from the left upper lobe Complications:?None Disposition:?Transferred to PACU in stable condition. Connie Lombardi MD, FACP Interventional Pulmonogist
--- NOTE | 2025-01-16 12:25 | XRR_ITS ---
PROCEDURE INFORMATION: Exam: XR Chest Exam date and time: 01/16/2025 12:28 PM Age: 59 years old Clinical indication: Device placement; Other: Post bronch; Prior surgery; Surgery date: Post-operative (0-2 days); Surgery type: Ion bronch, cervical; Additional info: Post op TECHNIQUE: Imaging protocol: Radiologic exam of the chest. Views: 1 view. COMPARISON: CR XR chest 1V portable [id number] 01/16/2025 11:48 AM FINDINGS: Tubes, catheters and devices: Unchanged left unilateral breast implant. Lungs: Unchanged 6 mm left upper lung nodule. A mild degree interstitial prominence of the lung bases is not changed. No focal consolidations. Pleural spaces: Unremarkable. No pleural effusion. No pneumothorax. Heart/Mediastinum: Unremarkable. No cardiomegaly. Bones/joints: There has been previous cervical spine fixation. XR/XR chest 1V portable [id number] IMPRESSION: No acute findings.
--- NOTE | 2025-01-16 12:58 | PM.OP ---
Operative Report Date of procedure: January 16, 2025 Procedure done: Robotic bronchoscopy mediastinal staging Surgeon: Connie Lombardi MD Estimated blood loss: Less than 10 cc Complications: None Findings: Procedure: Robotic bronchoscopy with complete mediastinal staging Attending: Connie Lombardi MD, FACP, FASN Indication: Left upper lobe nodule Anesthesia: General anesthesia per anesthesia team Procedure: Pre-Anesthesia Assessment [place] Protocol: Pre-procedure Verification: Prior to the procedure, the patient's identity was confirmed using full name, date of , and medical record number. Identity verification included a review of all relevant medical records, history, physical examination, medications, allergies, and previous anesthesia tolerance. Risks, benefits, sedation options, and associated risks were reviewed with the patient, and informed consent was obtained after addressing all questions. Time-Out: Immediately before the procedure, a time-out was conducted to confirm patient identification, procedure details, consent, image labeling, and the need for prophylactic antibiotics. This was verified by the physician, nurse, anesthesiologist, and new accounts clerk. Outcome: The procedure was completed without difficulty, and the patient tolerated it well. Findings: A thorough airway exam was performed after passage of the bronchoscope. The trachea was anatomically normal. The right sided airway was anatomically normal without endobronchial lesions. No secretions The left sided airway was anatomically normal without endobronchial lesions. No secretions The prior bronchoscope was removed from the airway. The [employer] Robotic Bronchoscopy platform was moved into place. The robotic bronchoscope was inserted into the endotracheal tube with care. The position of the bronchoscope was registered to a pre-existing CT scan using shape-sensing virtual bronchoscopy technology (35401). We navigated towards the lesion in the left upper lobe nodule using a pre-planned route using virtual bronchoscopy Prior to sampling, confirmation of lesion location was done using: ?- Radial ultrasound probe with no strong signal review and very weak eccentric view (34517), ?- Fluroscopy with a tool overlying the lesion on at least one visual plane. ?- Virtual target located directly within the path of intended biopsy direction on the shape sensing. ?- [facility] Beam intraoperative CT was performed 2 time(s).? The intraoperative CT imaging interpretation was utilized for guidance for needle placement. Imaging interpretation by me shows the persistent lesion as well as a tool within the lesion (36798) ?- CBCT data from the intraoperative imaging was integrated into the [employer] navigation software and the virtual lesion was updated. After confirming our location, we proceeded to sampling. - Transbronchial needle aspiraiton (TBNA) was performed of the lesion using the 21-gauge ION TBNA needle.? A total of 6 passes were formed. (09422) - Transbronchial biopsies of the lesion were performed using the captura 1.8 mm forceps and 1.1 cryoprobe).? A total of 12 samples were obtained. (89195) - Endobronchial brushings performed down the airway towards the lesion.? A total of 2 brushings were obtained. (30603) - A bronchoalveolar lavage was performed of the lobe containing the target lesion with 90 mL of saline instilled and 30 mL of effluent returned.? Additional rinse from the robotic bronchoscope lumen was added to the sample after removal of the scope. (89016) The prior bronchoscope was removed from the airway and the EBUS scope was inserted. A complete curvilinear EBUS procedure was performed of the following lymph nodes: Level 11R station was identified with the EBUS scope and 4 passes were made using 22-gauge Olympus TBNA needle. Level 4R station was identified with the EBUS scope at the lateral RMSB and 4 passes were made using a 22G Olympus TBNA needle. Level 7 station was identified with the EBUS scope at the medial LMSB/RMSB and 4 passes were made using a 22G Olympus TBNA needle. Then using the EBUS TBNA needle, I created track in station 7 lymph node for the 1.1 cryoprobe and I performed transbronchial lymph node biopsy using that 1.1 cryoprobe and I obtained 2 samples. (58163) Level 4L station was identified with the EBUS scope at the lateral LMSB and did not meet the criteria for sampling Level 11L station was identified with the EBUS scope at the left hilum and 4 passes were made using a 22G Olympus TBNA needle Then using the EBUS TBNA needle, I created track in station 11L lymph node for the 1.1 cryoprobe and I performed transbronchial lymph node biopsy using that 1.1 cryoprobe and I obtained 3 samples. (91397) ? Minimal bleeding post cryobiopsy that required a brief Zay balloon size 7 tamponade and 4 cc of topical epinephrine (1: 20,000 concentration). Then we achieved complete hemostasis. [place] Bleeding Scale Grade 2 Following completion of all diagnostic and therapeutic procedures, hemostasis was verified.? The scope was removed and procedure concluded. In summary, the following procedures were performed: 40174 Willcox (Endobronchial Brushing(s)), 42005 BAL, (Bronchoalveolar Lavage), 31528 TBBX, (Transbronchial biopsies, first lobe), 65615 TBBX additional lymph node transbronchial biopsy 24416 TBBX additional lymph node transbronchial biopsy 46201 pTBNA, (peripheral transbronchial needle aspiration), 87132 cEBUS 3 or more lesions, (Central curvelinear EBUS 3 or more lesions), 51954 pEBUS (peripheral/radial EBUS)? , 95784 Shahzad, (Navigation bronchoscopy, [employer], HOTEL Top-Level Domain), 51625: CT guidance for needle placement, ? Connie Lombardi MD, FACP, FASShelli Interventional Pulmonary Procedure:
--- NOTE | 2025-01-16 14:30 | XRR_ITS ---
PROCEDURE INFORMATION: Exam: XR Chest Exam date and time: 01/16/2025 2:49 PM Age: 59 years old Clinical indication: Device placement; Other: Post bronch; Prior surgery; Surgery date: Post-operative (0-2 days) TECHNIQUE: Imaging protocol: Radiologic exam of the chest. Views: 1 view. COMPARISON: CR XR chest 1V portable [id number] 01/16/2025 12:28 PM FINDINGS: Lungs: Unchanged small left mid lung pulmonary nodule. A mild increase in lower lung interstitial markings may relate to an incomplete inspiratory effort. No consolidation. Pleural spaces: Unremarkable. No pleural effusion. No pneumothorax. Heart/Mediastinum: Unremarkable. No cardiomegaly. Bones/joints: Cervical spine fixation plate is partially imaged. Soft tissues: Breast implants are present, calcified on the left. XR/XR chest 1V portable [id number] IMPRESSION: 1. Mild increase in lower lung interstitial markings, without significant change. 2. Known left lung mass would be best assessed with CT imaging.
--- NOTE | 2025-01-16 15:10 | ANE.PACU2 ---
Inpatient post-anesthesia follow up: Airway intact: Yes Vital signs: Temperature 97.6 F Pulse Rate 56 Respiratory Rate 18 Blood Pressure 133/76 Pulse Oximetry 98 Oxygen Delivery Me thod Room Air Oxygen Flow Rate Fraction of Inspir ed Oxygen Hydration adequate: Yes Nausea and vomiting: No Pain level: 1 Mental status: Baseline
== END 2025-01-16 15:10 | disposition home or self-care (01) ==
PROVIDERS: PCP Registered Nurse; Visit Provider Internal Medicine
PROC: 0BJ08ZZ Inspection of Tracheobronchial Tree, Via Natural or Artificial Opening Endoscopic (ICD-10-PCS; CPT 31622; principal; 2025-01-16 09:20)
PROC: 0BJ08ZZ Inspection of Tracheobronchial Tree, Via Natural or Artificial Opening Endoscopic (ICD-10-PCS; CPT 31622; 2025-01-16 09:20)
PROC: BB4BZZZ Ultrasonography of Pleura (ICD-10-PCS; 2025-01-16 09:20)
DX: R91.1 Solitary pulmonary nodule (principal); J44.9 Chronic obstructive pulmonary disease, unspecified; K21.9 Gastro-esophageal reflux disease without esophagitis; K44.9 Diaphragmatic hernia without obstruction or gangrene; F17.210 Nicotine dependence, cigarettes, uncomplicated; Z79.82 Long term (current) use of aspirin; Z85.43 Personal history of malignant neoplasm of ovary; Z85.42 Personal history of malignant neoplasm of other parts of uterus; Z85.3 Personal history of malignant neoplasm of breast; E07.9 Disorder of thyroid, unspecified
CPT/HCPCS: 31623; 31628; 31629; 31632; 31653; 31654; 71045; 76000; 87015; 87070; 87102; 87116; 87205; 87206; 87801; 88112; 88173; 88305; A9270; J0169; J2250; J3010; J3490; J7030; J9999

== ENCOUNTER 2025-04-12 10:16 | Outpatient (CLI) | payer OTHER, SELFPAY ==
--- NOTE | 2025-04-12 10:30 | CT_ITS ---
WS: [id number] CT chest wo con [id number] HISTORY: follow up pulmonary nodule TECHNIQUE: Axial imaging performed through the thorax. Coronal and sagittal reformats are submitted. All CT scans at [facility] use at least one of these dose optimization techniques: automated exposure control; mA and/or kV adjustment per patient size (includes targeted exams where dose is matched to clinical indication); or iterative reconstruction. CONTRAST: None DLP: 218.85 mGy.cm COMPARISON: 09/12/2024, 12/17/2024 Lungs and central airway: Centrilobular emphysema. Lungs are hyperexpanded. Reidentified is the ovoid nodule in the LEFT upper lobe measuring 10 x 7 mm. This very slightly spiculated nodule has remained stable since 09/12/2024. The more superior nodule measures 3 mm in the LEFT upper lobe and is also stable. RIGHT fissural nodule is stable. Benign calcified granulomata LEFT lower lobe. No new mass or pulmonary nodule. No pneumonia. Pleura: Normal. No pleural effusion. Heart and pericardium: Normal size heart with no pericardial effusion. Mediastinum and tony: No mediastinum or hilar adenopathy. Vessels: Normal size aorta and pulmonary artery. Chest wall and lower neck: Bilateral breast implants. More heavy calcification associated with the LEFT implant. Visualized upper abdomen is negative. Upper abdomen: Normal. Osseous structures: Prior cervical fusion. No destructive bone lesions. CT/CT chest wo con [id number] IMPRESSION: 1. Stable LEFT upper lobe pulmonary nodule since 09/12/2024. Largest nodule is also negative on PET/CT from 12/28/2024. Largest nodule slightly spiculated darron uring 10 x 7 mm. Recommend additional 6 to 12-month chest CT follow-up. 2. Centrilobular emphysema. 3. No mediastinal or hilar adenopathy. 4. Bilateral breast implants.
== END 2025-04-12 10:17 | disposition home or self-care (01) ==
LOC: RAD 10:18
PROVIDERS: PCP Registered Nurse; Visit Provider Internal Medicine
DX: R91.1 Solitary pulmonary nodule (principal); J43.2 Centrilobular emphysema; J98.4 Other disorders of lung
CPT/HCPCS: 71250